=== PATIENT | male | born 1970 | race Caucasian/White ===

== ENCOUNTER 2021-12-30 08:42 | Emergency (ER) | payer BC, OTHER ==
[2021-12-30] MEDS ORDERED: Ondansetron 4 MG/2 ML SDV IVPUSH ONE (10:19)
[2021-12-30] MEDS ORDERED: Sodium Chloride 0.9% 10 ML Syringe FLUSH PRN (10:19)
[2021-12-30] MEDS ORDERED: Sodium Chloride 0.9% 1,000 ML IV SCH (10:30)
[2021-12-30 10:48] LABS: ESTIMATED GFR 92 mL/min (>60)
[2021-12-30] MEDS ORDERED: Metoclopramide 10 MG/2 ML SDV IVPUSH ONE (11:18)
[2021-12-30] MEDS ORDERED: Dicyclomine 10 MG Cap PO ONE (12:15)
== END 2021-12-30 13:32 | disposition home or self-care (01) ==
LOC: JD.ED 08:42
DX: R11.10 Vomiting, unspecified (principal); I10 Essential (primary) hypertension; Z88.1 Allergy status to other antibiotic agents; Z91.011 Allergy to milk products; Z91.013 Allergy to seafood; Z88.6 Allergy status to analgesic agent; Z90.49 Acquired absence of other specified parts of digestive tract
CPT/HCPCS: 36415; 80053; 82947; 83690; 83735; 85025; 86140; 96361; 96374; 96375; 99284; A9270; J2405; J2765; J7030